=== PATIENT | male | born 1950 | race American Indian/Alaskan Native ===

== ENCOUNTER 2018-12-14 10:48 | Outpatient (CLI) | payer MEDICARE ==
--- NOTE | 2018-12-14 13:34 | Nuclear Medicine Report ---
NUCLEAR MEDICINE GASTRIC EMPTYING SCAN HISTORY: Abdominal pain for 6 months, nausea. FINDINGS: Anterior abdominal images were obtained for 90 minutes after ingestion of 1 mCi of technetium 99m sulfur cold in oatmeal. Half life for gastric emptying measures 30 minutes. No scintigraphic evidence for reflux disease. IMPRESSION: Normal gastric emptying.
== END 2018-12-14 10:49 | disposition home or self-care (01) ==
LOC: NM 10:48
PROVIDERS: ATTEND Student in an Organized Health Care Education/Training Program
DX: R10.13 Epigastric pain (principal); K31.89 Other diseases of stomach and duodenum; K21.9 Gastro-esophageal reflux disease without esophagitis; I10 Essential (primary) hypertension; Z90.49 Acquired absence of other specified parts of digestive tract
CPT/HCPCS: 78264; A9541